=== PATIENT | male | born 1990 | race Caucasian/White ===

== ENCOUNTER 2019-03-23 15:35 | Observation (INO) ==
[2019-03-23] MEDS ORDERED: OLANZapine 5 MG TAB.RAPDIS PO STA (17:01)
[2019-03-23] MEDS ORDERED: hydrOXYzine pamoate 25 MG CAPSULE PO STA (17:01)
[2019-03-23] MEDS ORDERED: MOM Conc 10 ML UD.LIQ PO PRN (20:47)
[2019-03-23] MEDS ORDERED: *HR* LORazepam 2 MG/ML VIAL IM PRN (20:47)
[2019-03-23] MEDS ORDERED: Haloperidol Lactate 5 MG/ML VIAL IM PRN (20:47)
[2019-03-23] MEDS ORDERED: Mag Hydrox/Al Hydrox/Simeth 30 ML UDC PO PRN (20:47)
[2019-03-23] MEDS ORDERED: *HR* LORazepam 1 MG TABLET PO PRN (20:47)
[2019-03-23] MEDS ORDERED: traZODone 50 MG TABLET PO PRN (20:47)
[2019-03-23] MEDS ORDERED: hydrOXYzine pamoate 25 MG CAPSULE PO PRN (20:47)
[2019-03-23] MEDS ORDERED: Ibuprofen 400 MG TABLET PO PRN (21:23)
[2019-03-23] MEDS ORDERED: Nicotine 21 MG PATCH.TD24 TD STA (21:23)
[2019-03-24] MEDS ORDERED: Nicotine 21 MG PATCH.TD24 TD SCH (09:00)
[2019-03-24 09:11] VITALS: BP 144/92
[2019-03-24] MEDS ORDERED: OLANZapine 5 MG TAB.RAPDIS PO ONE (10:45)
[2019-03-24] MEDS ORDERED: OLANZapine 10 MG TAB.RAPDIS PO SCH (21:00)
== END 2019-03-24 12:48 | disposition home or self-care (01) ==
LOC: EMEROOARM 15:35 → 1ANU 15:35
PROVIDERS: ADMIT Psychiatry & Neurology Psychiatry; ATTEND Psychiatry & Neurology Psychiatry

== ENCOUNTER 2019-05-04 18:58 | Inpatient (IN) ==
[2019-05-04 19:42] LABS: VBG HCO3 27 mEq/L (21-27); VBG PCO2 42 mmHg (41-51); VBG PH 7.42 pH Units (7.32-7.42); VBG PO2 112 mmHg (25-50)
[2019-05-04 19:59] LABS: Albumin 3.5 g/dL (3.5-5.7); Albumin/Globulin Ratio 1.7 (1.1-2.2); Bilirubin,Direct 0.1 mg/dL (0.0-0.2); Bilirubin,Indirect 0.3 mg/dL (0.0-1.0); Bilirubin,Total 0.4 mg/dL (0.3-1.0); Globulin 2.1 g/dL (2.4-3.5); Total Protein 5.6 g/dL (6.4-8.9)
[2019-05-04] MEDS ORDERED: Piperacillin/Tazobactam 3.375 GM in 0.9 % Sodium Chloride Mini Bag 100 ML IVPB ONE (20:32)
[2019-05-04] MEDS ORDERED: Isovue-370 500 ML BOTTLE IVP ONE (20:33)
[2019-05-04] MEDS ORDERED: Naloxone 0.4 MG/ML INJ IVP PRN (23:42)
[2019-05-04] MEDS ORDERED: *HR* LORazepam 2 MG/ML VIAL IVP PRN ×2 (23:44)
[2019-05-04] MEDS: *HR* LORazepam 2 MG/ML VIAL IVP PRN (23:57)
[2019-05-04] MEDS: 0.9 % Sodium Chloride 1,000 ML IVC SCH (23:57)
[2019-05-05] MEDS: 0.9 % Sodium Chloride 1,000 ML IVC SCH ×3 (00:06→08:21)
[2019-05-05 02:11] LABS: Basophils % 0.4 %; Eosinophils # 0.5 K/mcL (0.0-0.6); Eosinophils % 6.3 %; Hematocrit 31.8 % (37.5-50.1); Hemoglobin 10.6 g/dL (12.9-16.9); Immature Granulocytes % 0.2 % (0-4); Lymphocytes # 1.7 K/mcL (0.6-4.6); Mean Corpuscular HGB Conc 33.3 g/dL (31.6-35.5); Mean Corpuscular Hemoglobin 32.1 pg (28.0-33.3); Mean Corpuscular Volume 96.4 fL (83.0-100.0); Mean Platelet Volume 8.7 fL (9.4-12.4); Monocytes # 0.8 K/mcL (0.0-1.3); Monocytes % 9.2 %; Neutrophils # 5.1 K/mcL (1.6-8.9); Platelet Count 333 K/mcL (140-400); Red Cell Distribution Width 12.8 % (11.5-14.5); Segmented Neutrophils % 62.9 %; White Blood Count 8.1 K/mcL (4.3-11.1)
[2019-05-05 02:31] LABS: BUN/Creatinine Ratio 19 (6-26); Blood Urea Nitrogen 12 mg/dL (6-20); Calcium 8.2 mg/dL (8.6-10.3); Carbon Dioxide 27 mEq/L (23-29); Chloride 107 mEq/L (98-107); Glucose 83 mg/dL (70-105); Osmolality,Calculated 287 (280-300); Potassium 3.8 mEq/L (3.5-5.1); Sodium 139 mEq/L (136-145); eGFR For African Americans > 60 (> 60); eGFR For Non-African Americans > 60 (> 60)
[2019-05-05] MEDS: *HR* LORazepam 2 MG/ML VIAL IVP PRN (07:57)
[2019-05-05] MEDS: Piperacillin/Tazobactam 3.375 GM in 0.9 % Sodium Chloride Mini Bag 100 ML IVPB SCH ×2 (08:20→16:52)
[2019-05-05] MEDS: Divalproex (12 HR) 500 MG TABLET PO SCH ×2 (08:21→20:35)
[2019-05-05] MEDS ORDERED: Haloperidol Lactate 5 MG/ML VIAL IVP ONE (09:36)
[2019-05-05 13:02] LABS: Prothrombin Time 11.7 Seconds (9.4-12.1)
[2019-05-05] MEDS ORDERED: 0.9 % Sodium Chloride 500 ML ONE (13:53)
[2019-05-05] MEDS ORDERED: Haloperidol Lactate 5 MG/ML VIAL IVP SCH (15:00)
[2019-05-05 15:05] LABS: Thyroid Stimulating Hormone 2.498 mcIU/mL (0.340-5.600)
[2019-05-05] MEDS: Haloperidol Lactate 5 MG/ML VIAL IVP SCH ×2 (16:53→20:35)
[2019-05-05 20:16] LABS: Amphetamine Screen,Urine Negative ng/mL (Cutoff=1000); Barbiturate Screen,Urine Negative ng/mL (Cutoff=200); Benzodiazepines Screen,Urine Negative ng/mL (Cutoff=200); Cannabinoid Screen,Urine Positive ng/mL (Cutoff = 50); Cocaine Screen,Urine Negative ng/mL (Cutoff= 300); Opiate Screen,Urine Negative ng/mL (Cutoff=300); Phencyclidine Screen,Urine Negative ng/mL (Cutoff=25)
[2019-05-05] MEDS ORDERED: OLANZapine 10 MG TAB.RAPDIS PO SCH (21:00)
[2019-05-05 21:51] LABS: Acinetobacter baumannii by PCR Not Detected (Not Detect); Candida albicans by PCR Not Detected (Not Detect); Candida glabrata by PCR Not Detected (Not Detect); Candida krusei by PCR Not Detected (Not Detect); Candida parapsilosis by PCR Not Detected (Not Detect); Candida tropicalis by PCR Not Detected (Not Detect); Enterobacter cloacae Cmplx PCR Not Detected (Not Detect); Enterobacteriaceae by PCR Not Detected (Not Detect); Enterococcus by PCR Not Detected (Not Detect); Escherichia coli by PCR Not Detected (Not Detect); Klebsiella oxytoca by PCR Not Detected (Not Detect); Klebsiella pneumoniae by PCR Not Detected (Not Detect); Proteus by PCR Not Detected (Not Detect); Pseudomonas aeruginosa by PCR Not Detected (Not Detect); Serratia marcescens by PCR Not Detected (Not Detect); Staphylococcus aureus by PCR Not Detected (Not Detect); Staphylococcus by PCR DETECTED (Not Detect); Streptococcus agalactiae(B)PCR Not Detected (Not Detect); Streptococcus by PCR Not Detected (Not Detect); Streptococcus pneumoniae PCR Not Detected (Not Detect); Streptococcus pyogenes (A) PCR Not Detected (Not Detect); mecA Methicillin-Resist Gene Not Detected (Not Detect)
[2019-05-06] MEDS: Piperacillin/Tazobactam 3.375 GM in 0.9 % Sodium Chloride Mini Bag 100 ML IVPB SCH ×4 (00:50→23:35)
[2019-05-06] MEDS: Haloperidol Lactate 5 MG/ML VIAL IVP SCH ×3 (00:50→07:59)
[2019-05-06 04:11] LABS: BUN/Creatinine Ratio 24 (6-26); Blood Urea Nitrogen 14 mg/dL (6-20); Calcium 8.3 mg/dL (8.6-10.3); Carbon Dioxide 26 mEq/L (23-29); Chloride 107 mEq/L (98-107); Glucose 90 mg/dL (70-105); Magnesium 1.8 mg/dL (1.6-2.6); Osmolality,Calculated 284 (280-300); Potassium 3.9 mEq/L (3.5-5.1); Sodium 137 mEq/L (136-145); eGFR For African Americans > 60 (> 60); eGFR For Non-African Americans > 60 (> 60)
[2019-05-06 04:12] LABS: Basophils % 0.4 %; Eosinophils # 0.5 K/mcL (0.0-0.6); Eosinophils % 6.3 %; Hematocrit 33.2 % (37.5-50.1); Hemoglobin 10.7 g/dL (12.9-16.9); Immature Granulocytes % 0.4 % (0-4); Lymphocytes # 1.9 K/mcL (0.6-4.6); Lymphocytes % 23.6 %; Mean Corpuscular HGB Conc 32.2 g/dL (31.6-35.5); Mean Corpuscular Volume 99.4 fL (83.0-100.0); Mean Platelet Volume 8.7 fL (9.4-12.4); Monocytes # 0.7 K/mcL (0.0-1.3); Monocytes % 8.5 %; Neutrophils # 4.9 K/mcL (1.6-8.9); Platelet Count 347 K/mcL (140-400); Red Blood Count 3.34 M/mcL (4.19-5.50); Red Cell Distribution Width 12.6 % (11.5-14.5); Segmented Neutrophils % 60.8 %
[2019-05-06] MEDS ORDERED: *HR* Enoxaparin 40 MG/0.4 ML SYRINGE SQ SCH (07:00)
[2019-05-06] MEDS: Divalproex (12 HR) 500 MG TABLET PO SCH ×2 (07:59→21:53)
[2019-05-06] MEDS: Lactulose Oral Soln 20 GM/30 ML UDC PO SCH ×3 (08:06→21:52)
[2019-05-06] MEDS ORDERED: Haloperidol Lactate 5 MG/ML VIAL IVP SCH (12:00)
[2019-05-06] MEDS: 0.9 % Sodium Chloride 1,000 ML IVC SCH ×2 (12:05→16:33)
[2019-05-06] MEDS: *HR* LORazepam 2 MG/ML VIAL IVP PRN (13:46)
[2019-05-06] MEDS ORDERED: Haloperidol Lactate 5 MG/ML VIAL IM ONE (16:31)
[2019-05-06] MEDS: OLANZapine 10 MG TAB.RAPDIS PO SCH (21:52)
[2019-05-06] MEDS: Haloperidol Lactate 5 MG/ML VIAL IVP PRN (23:34)
[2019-05-07 05:41] LABS: Basophils % 0.3 %; Eosinophils # 0.3 K/mcL (0.0-0.6); Eosinophils % 4.9 %; Hematocrit 33.6 % (37.5-50.1); Hemoglobin 10.9 g/dL (12.9-16.9); Immature Granulocytes % 0.3 % (0-4); Lymphocytes # 1.3 K/mcL (0.6-4.6); Lymphocytes % 20.9 %; Mean Corpuscular HGB Conc 32.4 g/dL (31.6-35.5); Mean Corpuscular Hemoglobin 32.2 pg (28.0-33.3); Mean Corpuscular Volume 99.4 fL (83.0-100.0); Mean Platelet Volume 8.6 fL (9.4-12.4); Monocytes # 0.6 K/mcL (0.0-1.3); Monocytes % 9.9 %; Platelet Count 364 K/mcL (140-400); Red Blood Count 3.38 M/mcL (4.19-5.50); Red Cell Distribution Width 12.7 % (11.5-14.5); Segmented Neutrophils % 63.7 %; White Blood Count 6.3 K/mcL (4.3-11.1)
[2019-05-07] MEDS: 0.9 % Sodium Chloride 1,000 ML IVC SCH ×3 (06:02→21:15)
[2019-05-07 06:06] LABS: BUN/Creatinine Ratio 13 (6-26); Blood Urea Nitrogen 10 mg/dL (6-20); Calcium 8.2 mg/dL (8.6-10.3); Carbon Dioxide 26 mEq/L (23-29); Chloride 110 mEq/L (98-107); Glucose 97 mg/dL (70-105); Magnesium 1.9 mg/dL (1.6-2.6); Osmolality,Calculated 291 (280-300); Potassium 3.7 mEq/L (3.5-5.1); Sodium 141 mEq/L (136-145); eGFR For African Americans > 60 (> 60); eGFR For Non-African Americans > 60 (> 60)
[2019-05-07 06:17] LABS: Hepatitis B Surface Antigen Nonreactive (Nonreactive)
[2019-05-07 06:46] LABS: Hepatitis C Virus Antibody Nonreactive (Nonreactive)
[2019-05-07 06:47] LABS: Hepatitis A Antibody IgM Nonreactive (Nonreactive)
[2019-05-07 08:30] LABS: Hematocrit 34.3 % (37.5-50.1); Hemoglobin 11.5 g/dL (12.9-16.9)
[2019-05-07] MEDS: Piperacillin/Tazobactam 3.375 GM in 0.9 % Sodium Chloride Mini Bag 100 ML IVPB SCH ×3 (09:29→23:55)
[2019-05-07] MEDS: Divalproex (12 HR) 500 MG TABLET PO SCH ×2 (09:29→21:14)
[2019-05-07] MEDS: OLANZapine 10 MG TAB.RAPDIS PO SCH ×2 (09:29→21:14)
[2019-05-07] MEDS: Haloperidol Lactate 5 MG/ML VIAL IVP PRN (09:30)
[2019-05-07] MEDS: Lactulose Oral Soln 20 GM/30 ML UDC PO SCH ×3 (09:30→21:14)
[2019-05-08] MEDS: 0.9 % Sodium Chloride 1,000 ML IVC SCH ×3 (07:02→19:37)
[2019-05-08] MEDS: OLANZapine 10 MG TAB.RAPDIS PO SCH ×2 (09:02→21:21)
[2019-05-08] MEDS: Divalproex (12 HR) 500 MG TABLET PO SCH ×2 (09:02→21:21)
[2019-05-08] MEDS: Piperacillin/Tazobactam 3.375 GM in 0.9 % Sodium Chloride Mini Bag 100 ML IVPB SCH ×3 (09:03→23:41)
[2019-05-08] MEDS: Lactulose Oral Soln 20 GM/30 ML UDC PO SCH ×3 (09:03→21:21)
[2019-05-08 10:17] LABS: Basophils % 0.5 %; Eosinophils # 0.3 K/mcL (0.0-0.6); Eosinophils % 3.7 %; Hematocrit 35.4 % (37.5-50.1); Hemoglobin 11.7 g/dL (12.9-16.9); Immature Granulocytes % 0.5 % (0-4); Lymphocytes # 0.9 K/mcL (0.6-4.6); Lymphocytes % 12.2 %; Mean Corpuscular HGB Conc 33.1 g/dL (31.6-35.5); Mean Corpuscular Hemoglobin 31.9 pg (28.0-33.3); Mean Corpuscular Volume 96.5 fL (83.0-100.0); Mean Platelet Volume 8.7 fL (9.4-12.4); Monocytes # 0.7 K/mcL (0.0-1.3); Monocytes % 8.5 %; Neutrophils # 5.7 K/mcL (1.6-8.9); Platelet Count 425 K/mcL (140-400); Red Blood Count 3.67 M/mcL (4.19-5.50); Red Cell Distribution Width 12.8 % (11.5-14.5); Segmented Neutrophils % 74.6 %; White Blood Count 7.6 K/mcL (4.3-11.1)
[2019-05-08 10:30] LABS: BUN/Creatinine Ratio 13 (6-26); Blood Urea Nitrogen 9 mg/dL (6-20); Calcium 8.5 mg/dL (8.6-10.3); Carbon Dioxide 29 mEq/L (23-29); Chloride 106 mEq/L (98-107); Glucose 94 mg/dL (70-105); Magnesium 1.9 mg/dL (1.6-2.6); Osmolality,Calculated 292 (280-300); Potassium 3.7 mEq/L (3.5-5.1); Sodium 142 mEq/L (136-145); eGFR For African Americans > 60 (> 60); eGFR For Non-African Americans > 60 (> 60)
[2019-05-08 12:16] LABS: eGFR For African Americans > 60 (> 60); eGFR For Non-African Americans > 60 (> 60)
[2019-05-08] MEDS ORDERED: Isovue-370 500 ML BOTTLE IVP ONE (12:56)
[2019-05-09 04:37] LABS: BUN/Creatinine Ratio 16 (6-26); Blood Urea Nitrogen 12 mg/dL (6-20); Calcium 8.6 mg/dL (8.6-10.3); Carbon Dioxide 31 mEq/L (23-29); Chloride 106 mEq/L (98-107); Glucose 88 mg/dL (70-105); Magnesium 1.9 mg/dL (1.6-2.6); Osmolality,Calculated 297 (280-300); Sodium 144 mEq/L (136-145); eGFR For African Americans > 60 (> 60); eGFR For Non-African Americans > 60 (> 60)
[2019-05-09 04:39] LABS: Basophils % 0.4 %; Eosinophils # 0.4 K/mcL (0.0-0.6); Eosinophils % 5.9 %; Hematocrit 39.1 % (37.5-50.1); Hemoglobin 12.5 g/dL (12.9-16.9); Immature Granulocytes % 0.4 % (0-4); Lymphocytes # 1.5 K/mcL (0.6-4.6); Lymphocytes % 21.6 %; Mean Corpuscular Hemoglobin 32.2 pg (28.0-33.3); Mean Corpuscular Volume 100.8 fL (83.0-100.0); Mean Platelet Volume 8.7 fL (9.4-12.4); Monocytes # 0.8 K/mcL (0.0-1.3); Monocytes % 11.2 %; Neutrophils # 4.2 K/mcL (1.6-8.9); Platelet Count 444 K/mcL (140-400); Red Blood Count 3.88 M/mcL (4.19-5.50); Segmented Neutrophils % 60.5 %
[2019-05-09] MEDS: Piperacillin/Tazobactam 3.375 GM in 0.9 % Sodium Chloride Mini Bag 100 ML IVPB SCH (10:51)
[2019-05-09] MEDS: Lactulose Oral Soln 20 GM/30 ML UDC PO SCH (10:52)
[2019-05-09] MEDS: OLANZapine 10 MG TAB.RAPDIS PO SCH (10:52)
[2019-05-09] MEDS: Divalproex (12 HR) 500 MG TABLET PO SCH (10:53)
[2019-05-09 15:00] VITALS: BP 131/74
[2019-05-09] MEDS ORDERED: Aminoglycoside Consult 1 EACH MC ONE (17:20)
[2019-05-11 18:07] LABS: Valproate Free <7 ug/mL (7-23); Valproate Total 30 ug/mL (50-125)
== END 2019-05-09 17:21 | disposition home or self-care (01) | DRG 383 ==
LOC: EMEROOARM 18:58 → 3ANU 18:58 → SUATTDRO 22:23 → 3ANU 22:59
PROVIDERS: ADMIT Student in an Organized Health Care Education/Training Program; ATTEND Pharmacist